=== PATIENT | male | born 1965 | race Caucasian/White ===

== ENCOUNTER 2022-09-08 14:51 | Outpatient (CLI) | payer OTHER | END 2022-09-08 14:55 | disposition home or self-care (01) | LOC: LAB 14:51 | PROVIDERS: ATTEND Radiology Diagnostic Radiology | DX: R10.30 Lower abdominal pain, unspecified (principal) ==

== ENCOUNTER 2022-09-15 07:57 | Outpatient (CLI) | payer OTHER | END 2022-09-15 08:12 | disposition home or self-care (01) | LOC: MRI 07:57 | PROVIDERS: ATTEND Urology | DX: N28.1 Cyst of kidney, acquired (principal) | CPT/HCPCS: 74181; 74183 ==